=== PATIENT | male | born 1975 | race African-American/Black ===

== ENCOUNTER 2018-02-17 11:31 | Emergency (ER) | payer BC ==
[2018-02-17] MEDS ORDERED: Albuterol/Ipratropium Neb 3 ML AERS HHN ONE ×2 (11:45→11:47)
[2018-02-17] MEDS ORDERED: Magnesium Sulfate 1 gm/2 mL 2mL Vial IV ONE (11:58)
[2018-02-17 12:04] VITALS: BP 127/74
[2018-02-17 12:31] LABS: % BASOPHILS 0.4 % (0.0-2.0); % EOSINOPHILS 5.5 % (0.0-5.0); % LYMPHOCYTES 17.1 % (20.0-50.0); % MONOCYTES 10.5 % (2.0-10.0); % NEUTROPHILS 66.5 % (40.0-80.0); EOSINOPHILE ABSOLUTE 0.3 Th/cmm (0.1-0.4); HEMATOCRIT 42.1 % (41.0-60); HEMOGLOBIN 13.2 gm/dL (12-16); MEAN CELL VOLUME 73.8 fl (80-99); MEAN CORPUSCULAR HEMOGLOBIN 23.1 pg (26.0-30.0); MEAN CORPUSCULAR HGB CONC 31.3 pg (28.0-36.0); MEAN PLATELET VOLUME 6.8 fl; MONOCYTE ABSOLUTE 0.6 Th/cmm (0.3-1.0); NEUTROPHILE ABSOLUTE 4.1 Th/cmm (1.8-8.0); PLATELET COUNT 237 Th/cmm (150-400); RED CELL DISTRIBUTION WIDTH 12.8 % (11.5-20.0)
[2018-02-17] MEDS ORDERED: cefTRIAXone 1 GM in Sodium Chloride 0.9% 50 ML IV ONE (12:44)
[2018-02-17 12:48] LABS: ALB/GLOB RATIO 1.6 (1.0-1.8); ALBUMIN 4.2 gm/dL (4.2-5.5); ALKALINE PHOSPHATASE 49 U/L (34-104); ANION GAP 10.7 (7.0-16.0); BILIRUBIN,TOTAL 0.4 mg/dL (0.3-1.0); BUN - UREA NITROGEN 9 mg/dL (7-25); CALCIUM SERUM 9.5 mg/dL (8.6-10.3); CARBON DIOXIDE 28.1 mEq/L (21.0-31.0); CHLORIDE 105 mEq/L (98-107); GFR AFRICAN-AMERICAN > 60.0 ml/min (>90); GFR NON AFRICAN-AMERICAN > 60.0 ml/min; GLUCOSE 109 mg/dL (70-105); MAGNESIUM 2.1 mg/dL (1.9-2.7); POTASSIUM SERUM 3.8 mEq/L (3.5-5.1); SGOT 19 U/L (13-39); SGPT/ALT 18 U/L (7-52); SODIUM SERUM 140 mEq/L (136-145); TOTAL PROTEIN,SERUM 6.9 gm/dL (6.0-8.3)
--- NOTE | 2018-02-17 13:00 | Diagnostic Imaging Report ---
Chest x-ray single view History: Shortness of breath The heart size is normal. No focal pulmonary parenchymal processes. No hilar or mediastinal abnormalities. Impression: No acute abnormalities
--- NOTE | 2018-02-17 13:12 | ED Physician Chart ---
ED Chief Complaint/HPI - Patient Information Date Seen:: 02/17/18 Time Seen:: 11:35 Chief Complaint:: shortness of breath History of Present Illness:: shortness of breath in a man with a childhood h/o asthma. purulent sputum production. Allergies:: Allergies Allergy/AdvReac Type Severity Reaction Status Date / Time No Known Allergies Allergy Verified 02/17/18 11:55 Vitals:: Vital Signs - 8 hr 02/17/18 02/17/18 02/17/18 11:35 11:46 11:54 Temp HR 71 88 RR 18 18 BP 127/72 127/74 O2 Sat % 98 97 02/17/18 12:01 Temp 97.9 F HR 77 RR 19 BP 127/74 O2 Sat % 98 Historian:: Patient Review:: Nurse's Note Reviewed ED Review of Systems - Review of Systems General/Constitutional: No fever, No chills, No weight loss, No weakness, No diaphoresis, No edema, No loss of appetite Skin: No skin lesions, No rash, No bruising Head: No headache, No light-headedness Eyes: No loss of vision, No pain, No diplopia ENT: No earache, No nasal drainage, No sore throat, No tinnitus Neck: No neck pain, No swelling, No thyromegaly, No stiffness, No mass noted Cardio Vascular: No chest pain, No palpitations, No PND, No orthopnea, No edema Pulmonary: SOB, Cough, Sputum, Wheezing GI: No nausea, No vomiting, No diarrhea, No pain, No melena, No hematochezia, No constipation, No hematemesis G/U: No dysuria, No frequency, No hematuria Musculoskeletal: No bone or joint pain, No back pain, No muscle pain Endocrine: No polyuria, No polydipsia Psychiatric: No prior psych history, No depression, No anxiety, No suicidal ideation Hematopoietic: No bruising, No lymphadenopathy Allergic/Immuno: No urticaria, No angioedema Neurological: No syncope, No focal symptoms, No weakness, No paresthesia, No headache, No seizure, No dizziness, No confusion, No vertigo ED Past Medical History - Past Medical History Obtainable: Yes Past Medical History: Asthma/COPD Family Medical History - Family Member Mother History Unknown: Yes ED Physical Exam - Physical Examination General/Constitutional: Well-developed, well-nourished, GCS 15, Ambulatory Other Gen/Cons comments:: in mild to moderate respiratory distress Head: Atraumatic Eyes: Lids, conjuctiva normal, PERRL, EOMI Skin: Nl inspection, No rash, No skin lesions, No ecchymosis, Well hydrated, No lymphadenopathy ENMT: External ears, nose nl, TM canals nl, Lips, teeth, gums nl, Oropharynx nl , Tonsils nl Other ENMT comments:: clear nasal discharge Neck: Nontender, Full ROM w/o pain, No nuchal rigidity, No mass, No stridor Other Respiratory comments:: diffuse wheezing throughout. Cardio Vascular: RRR, No murmur, gallop, rubs, NL S1 S2 GI: No tenderness/rebounding/guarding, No organomegaly, No hernia, Normal BS's, Nondistended, No mass/bruits, No McBurney tenderness : No CVA tenderness Extremities: No tenderness or effusion, Full ROM, normal strength in all extremities, No edema, Normal digits & nails Neuro/Psych: Alert/oriented, Normal sensory exam, Normal motor strength, Judgement/insight normal, Normal gait, No focal deficits Other Neuro/Psych comments:: anxious Misc: Normal back, No paraspinal tenderness ED Labs/Radiology/EKG Results - Lab Results Results: Laboratory Tests 02/17/18 02/17/18 12:00 12:00 WBC 6.0 RBC 5.70 Hgb 13.2 Hct 42.1 MCV 73.8 L MCH 23.1 L MCHC Differential 31.3 RDW 12.8 Plt Count 237 MPV 6.8 Neutrophils % 66.5 Lymphocytes % 17.1 L Monocytes % 10.5 H Eosinophils % 5.5 H Basophils % 0.4 Sodium 140 Potassium 3.8 Chloride 105 Carbon Dioxide 28.1 Anion Gap 10.7 BUN 9 Creatinine 1.0 Est GFR ( Amer) > 60.0 Est GFR (Non-Af Amer) > 60.0 BUN/Creatinine Ratio 9.0 Glucose 109 H Calcium 9.5 Phosphorus 3.0 Magnesium 2.1 Total Bilirubin 0.4 AST 19 ALT 18 Alkaline Phosphatase 49 Total Protein 6.9 Albumin 4.2 Globulin 2.7 Albumin/Globulin Ratio 1.6 ED Assessment - Assessment General Assessment: CXR per my reading: increased bronchial markings throughout. No discrete infiltrate. ED Septic Shock - . Is Septic Shock (SBP<90, OR Lactate>4 mmol\L) present?: No - <6hrs of presentation: Vital Signs: Vital Signs - 8 hr 02/17/18 02/17/18 02/17/18 11:35 11:46 11:54 Temp HR 71 88 RR 18 18 BP 127/72 127/74 O2 Sat % 98 97 02/17/18 12:01 Temp 97.9 F HR 77 RR 19 BP 127/74 O2 Sat % 98 ED Reassessment (Disposition) - Reassessment Reassessment Condition:: Improved - Diagnosis Diagnosis:: Asthma exacerbation Bronchitis - Aftercare/Follow up Instructions Aftercare/Follow-Up Instructions:: Refer to Discharge Instructions Notes:: off of work until Tuesday. No sports or physical activity for 1 week after you feel well. follow up with primary care physician. Medication Prescribed:: Doxycycline 100 mg po bid # 20 Prednisone 10 mg: Days 1 and 2: 6 tablets; days 3 & 4: 5 tablets; days 5 and 6: 4 tablets; days 7 and 8: 3 tablets; days 9 and 10: 2 tablets; days 11 and 12: 1 tablet then off. Dispense QS. Albuterol 2.5 mg/3ml nebulizer solution: 1 po q 6 hours prn # 20. - Patient Disposition Discharge/Transfer:: Home Condition at Disposition:: Stable, Improved
[2018-02-17 13:26] LABS: INF A SCREEN NEG FOR INF A
[2018-02-17 13:27] LABS: INF B SCREEN NEG FOR INF B
== END 2018-02-17 14:24 | disposition home or self-care (01) ==
LOC: ER 11:31
DX: J45.901 Unspecified asthma with (acute) exacerbation (principal)
CPT/HCPCS: 99284; 96365; 96367; 96375; 94640; 71045; 36415; 87804 ×2; 85025; 83735; 84100; 80053; J0696; J2930; J3475; Z7502